=== PATIENT | female | born 1960 | race Caucasian/White ===

== ENCOUNTER 2018-05-29 08:32 | Day surgery (SDC) ==
[2018-05-29] MEDS ORDERED: LIDOCAINE 2% 20 ML MDV ONE (10:00)
[2018-05-29] MEDS ORDERED: DIPRIVAN 20 ML VIAL IVP ONE (10:00)
[2018-05-29] MEDS ORDERED: ANECTINE ONE (10:00)
[2018-05-29] MEDS ORDERED: DECADRON 4 MG/ML SDV ONE ×2 (10:00)
[2018-05-29] MEDS ORDERED: SUBLIMAZE ONE (10:00)
[2018-05-29] MEDS ORDERED: VERSED ONE (10:00)
[2018-05-29] MEDS ORDERED: ZOFRAN 4 MG/2 ML IVP STA (10:40)
--- NOTE | 2018-05-29 15:37 | OP ---
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 A endotracheal tube was inserted and using a 400 mm lens and Zeiss microscope the right true vocal cord full lesion was grasped and removed in total. The patient was then extubated and returned to the recovery room in satisfactory condition. [facility]
[2018-06-01 07:30] VITALS: BP 121/72; TEMP 98.6
== END 2018-05-29 11:38 | disposition home or self-care (01) ==
LOC: SURG 08:32
PROVIDERS: ATTEND Otolaryngology
DX: J38.1 Polyp of vocal cord and larynx (principal)